=== PATIENT | male | born 1980 | race Caucasian/White ===

== ENCOUNTER 2020-05-06 17:52 | Emergency (ER) | payer OTHER ==
[~2020-05-06] VITALS: Ht 193 cm; Wt 139.7 kg
[~2020-05-06 17:52] MED LIST: IBUPROFEN 200200 M1 PO; LEVOTHYROXIN0.075 MG PO
[2020-05-06 18:31] LABS: ABSOLUTE BASOPHILS 0.1 thou/uL (0.0-0.2); ABSOLUTE EOSINOPHILS 0.2 thou/uL (0.0-0.7); ABSOLUTE MONOCYTES 0.4 thou/uL (0.0-1.2); ABSOLUTE NEUTROPHILS 3.8 thou/uL (1.6-8.1); BASOPHILS 0.8 %; EOSINOPHILS 2.9 %; HEMATOCRIT 42.8 % (42.0-52.0); HEMOGLOBIN 14.5 gm/dL (14.0-18.0); LYMPHOCYTES 39.8 %; MCH 28.2 pg (26.0-34.0); MCHC 33.9 g/dL (28.0-37.0); MCV 83.2 fL (80.0-100.0); MONOCYTES 5.8 %; MPV 7.7 fl. (7.2-11.1); NUCLEATED RBCS 0 /100WBC; PLATELET COUNT* 237 thou/uL (150-400); POLYS 50.7 %; RBC 5.15 mil/uL (4.50-6.00); RDW-CV 14.1 % (10.5-14.5); WBC 7.5 thou/uL (4.0-11.0)
[2020-05-06] MEDS ORDERED: PREDNISONE 10 M10 M1 PO (18:32)
[2020-05-06] MEDS ORDERED: ACYCLOVIR 800800 MG PO (18:32)
[2020-05-06 18:45] LABS: CALCIUM 9.2 mg/dL (8.5-10.1); POTASSIUM 4.2 mmol/L (3.5-5.1)
[2020-05-06 18:50] LABS: ALBUMIN 4.3 g/dL (3.4-5.0); TOTAL BILIRUBIN 0.4 mg/dL (<0.1-1.0); TOTAL PROTEIN 7.7 g/dL (6.4-8.2)
[2020-05-06 19:28] VITALS: BP 175/89
== END 2020-05-06 19:29 | disposition home or self-care (01) ==
LOC: M.ERS 17:52
PROVIDERS: Emergency Medicine Emergency Medical Services
DX: G51.0 Bell's palsy (principal); E03.9 Hypothyroidism, unspecified